=== PATIENT | female | born 1955 | race Caucasian/White ===

== ENCOUNTER → 2017-04-02 | Outpatient (CLI) | payer OTHER ==
[~2017-04-02] MED LIST: MULTIVITAMIN1 CTB PO; NORVASC 5MG5 MG/TAB PO; OMEGA 31000 MG PO; PROBIOTIC-MAJOR PO; VITAMINC1000TA
== END ==
LOC: MC.RAD 10:14
DX: Z12.31 Encounter for screening mammogram for malignant neoplasm of breast (principal)

== ENCOUNTER → 2017-05-23 | Outpatient (CLI) | payer OTHER ==
[2017-05-23 11:28] LABS: HIV 1/2 Antibodies Non-Reactive; HIV-1p24 Antigen Non-Reactive
== END ==
LOC: COL.RAD 09:43
PROVIDERS: Orthopaedic Surgery
DX: Z01.812 Encounter for preprocedural laboratory examination (principal); M17.11 Unilateral primary osteoarthritis, right knee

== ENCOUNTER 2018-02-14 09:08 | Emergency (ER) | payer OTHER ==
[~2018-02-14] VITALS: Ht 172.7 cm; Wt 109.1 kg
[~2018-02-14 09:08] MED LIST changes: +MULTIPLE VITAMI1 CAP PO; -MULTIVITAMIN1 CTB PO
[2018-02-14] MEDS ORDERED: PRILOSEC 20MG20 MG PO (09:39)
[2018-02-14] MEDS ORDERED: CELEXA10 MG PO (09:40)
[2018-02-14] MEDS ORDERED: L-LYSINE500 M1 PO (09:40)
[2018-02-14] MEDS ORDERED: FOLIC ACID 40400 MCG PO (09:40)
[2018-02-14] MEDS ORDERED: ALEVE LIQCAPS PO (09:41)
[2018-02-14] MEDS ORDERED: LEVOXYL0.075 MG PO (09:41)
[2018-02-14] MEDS ORDERED: MAGNESIUM250 M1 PO (09:42)
[2018-02-14 09:46] LABS: BASO % 0.4 % (0.0-2.0); EOS # 0.3 (0.0-0.7); EOS % 4.9 % (0-4.0); GRAN # 2.9 (1.4-6.5); GRAN % 56.1 % (42.2-75.2); HEMATOCRIT 40.4 % (37.0-47.0); HEMOGLOBIN 13.3 g/dl (12.5-16.0); LYMPH # 1.5 (1.2-3.4); MEAN CELL VOLUME 89 fl (80.0-100.0); MEAN CORPUSCULAR HEMOGLOBIN 29 pg (27.0-31.0); MEAN CORPUSCULAR HGB CONC 33 g/dl (33.0-37.0); MEAN PLATELET VOLUME 10.1 fl (7.4-10.4); MONO # 0.5 (0.1-0.6); MONO % 9.4 % (1.7-9.3); PLATELET COUNT 206 K/mm3 (130-400); RED BLOOD COUNT 4.54 M/mm3 (4.10-5.30); REDCELL DISTRIBUTION WIDTH-CV 13.3 % (11.5-14.5)
[2018-02-14 09:58] LABS: ALANINE AMINOTRANSFERASE 27 U/L (9-52); ALBUMIN 3.8 gm/dL (3.5-5.0); ALKALINE PHOSPHATASE 71 U/L (50-136); ANION GAP 10 mmol/L (7-16); AST,SGOT 24 U/L (15-37); BILIRUBIN,TOTAL 0.6 mg/dL (0.0-1.0); BLOOD UREA NITROGEN 19 mg/dL (7-17); CALCIUM 8.8 mg/dL (8.4-10.2); CARBON DIOXIDE 27 mmol/L (22-30); CHLORIDE 104 mmol/L (98-107); GLUCOSE 78 mg/dL (74-106); LIPASE 121 U/L (23-300); SODIUM 141 mmol/L (137-145); TOTAL PROTEIN 6.5 gm/dL (6.4-8.2)
[2018-02-14 10:12] LABS: TROPONIN-I < 0.012 ng/mL (0.000-0.034)
[2018-02-14] MEDS ORDERED: NITROSTAT0.3 MG SL (11:33)
[2018-02-14 11:43] VITALS: BP 184/76; PULSE 53; TEMP 97.8
[2018-02-15] MEDS ORDERED: MELATONIN3 M1 PO (16:13)
[2018-02-15] MEDS ORDERED: NITROSTAT0.3 MG SL (16:18)
[2018-02-18] MEDS ORDERED: ASPIRIN 32325 MG/TA1 PO (08:19)
== END 2018-02-14 11:44 | disposition home or self-care (01) ==
LOC: COL.ER 09:08
PROVIDERS: Emergency Medicine
DX: R07.89 Other chest pain (principal); I10 Essential (primary) hypertension; Z90.89 Acquired absence of other organs; Z90.710 Acquired absence of both cervix and uterus
CPT/HCPCS: J7030

== ENCOUNTER → 2018-02-18 | Outpatient (CLI) | payer OTHER ==
[~2018-02-18] VITALS: Ht 172.7 cm; Wt 110.8 kg
[~2018-02-18] MED LIST changes: +ALEVE LIQCAPS PO; +ASPIRIN 32325 MG/TA1 PO; +CELEXA10 MG PO; +FOLIC ACID 40400 MCG PO; +L-LYSINE500 M1 PO; +LEVOXYL0.075 MG PO; +MAGNESIUM250 M1 PO; +MELATONIN3 M1 PO; +NITROSTAT0.3 MG SL; +PRILOSEC 20MG20 MG PO
[2018-02-18 08:21] VITALS: BP 160/70; PULSE 62
[2018-02-18 09:46] VITALS: BP 168/57; PULSE 88
[2018-02-18 09:48] VITALS: BP 161/60; PULSE 78
== END ==
LOC: COL.CARD 06:45 → COL.RAD 06:45
DX: R07.9 Chest pain, unspecified (principal)
CPT/HCPCS: A9502; J2785

== ENCOUNTER 2018-12-09 15:24 | Emergency (ER) | payer MEDICARE, OTHER ==
[~2018-12-09] VITALS: Ht 172.7 cm; Wt 111.4 kg
[2018-12-09 15:33] VITALS: TEMP 97.9
[2018-12-09 16:01] LABS: BASO % 0.5 % (0.0-2.0); EOS # 0.1 (0.0-0.7); EOS % 1.7 % (0-4.0); GRAN # 3.4 (1.4-6.5); GRAN % 58.8 % (42.2-75.2); HEMATOCRIT 38.2 % (37.0-47.0); HEMOGLOBIN 12.4 g/dl (12.5-16.0); LYMPH # 1.6 (1.2-3.4); LYMPH % 27.8 % (20.0-51.0); MEAN CELL VOLUME 91 fl (80.0-100.0); MEAN CORPUSCULAR HEMOGLOBIN 30 pg (27.0-31.0); MEAN CORPUSCULAR HGB CONC 33 g/dl (33.0-37.0); MEAN PLATELET VOLUME 9.6 fl (7.4-10.4); MONO # 0.6 (0.1-0.6); PLATELET COUNT 318 K/mm3 (130-400); RED BLOOD COUNT 4.19 M/mm3 (4.10-5.30); REDCELL DISTRIBUTION WIDTH-CV 13.8 % (11.5-14.5)
[2018-12-09 16:04] LABS: INR 1.1 (0.8-3.0)
[2018-12-09 16:07] LABS: PARTIAL THROMBOPLASTIN TIME 29.3 SECONDS (26.0-37.0)
[2018-12-09 16:09] LABS: ALANINE AMINOTRANSFERASE 11 U/L (9-52); ALBUMIN 3.6 gm/dL (3.5-5.0); ALKALINE PHOSPHATASE 81 U/L (50-136); ANION GAP 8 mmol/L (7-16); AST,SGOT 16 U/L (15-37); BILIRUBIN,TOTAL 0.3 mg/dL (0.0-1.0); BLOOD UREA NITROGEN 20 mg/dL (7-17); CARBON DIOXIDE 25 mmol/L (22-30); CHLORIDE 107 mmol/L (98-107); CREATININE, serum 0.95 (0.52-1.25); GLUCOSE 111 mg/dL (74-106); POTASSIUM 3.4 mmol/L (3.4-5.0); SODIUM 141 mmol/L (137-145); TOTAL PROTEIN 6.6 gm/dL (6.4-8.2)
[2018-12-09 16:21] LABS: TROPONIN-I < 0.012 ng/mL (0.000-0.035)
[2018-12-09] MEDS ORDERED: PRILOSEC 20MG20 MG PO (18:27)
[2018-12-09 18:40] VITALS: BP 166/74; PULSE 76
== END 2018-12-09 18:40 | disposition home or self-care (01) ==
LOC: COL.ER 15:24
PROVIDERS: Family Medicine
DX: R07.89 Other chest pain (principal); I10 Essential (primary) hypertension; F41.9 Anxiety disorder, unspecified; Z98.890 Other specified postprocedural states; Z79.82 Long term (current) use of aspirin
CPT/HCPCS: Q9967

== ENCOUNTER → 2019-01-03 | Outpatient (CLI) | payer MEDICARE, OTHER ==
[2019-01-03 11:17] LABS: HEMATOCRIT 40.6 % (37.0-47.0); HEMOGLOBIN 13.1 g/dl (12.5-16.0); MEAN CELL VOLUME 93 fl (80.0-100.0); MEAN CORPUSCULAR HEMOGLOBIN 30 pg (27.0-31.0); MEAN CORPUSCULAR HGB CONC 32 g/dl (33.0-37.0); MEAN PLATELET VOLUME 10.2 fl (7.4-10.4); PLATELET COUNT 229 K/mm3 (130-400); RED BLOOD COUNT 4.39 M/mm3 (4.10-5.30)
[2019-01-03 11:55] LABS: ERYTHROCYTE SEDIMENTATION RATE 6 mm/hr (0-30)
== END ==
LOC: COL.LAB 09:53
PROVIDERS: Nurse Practitioner Family
DX: Z96.652 Presence of left artificial knee joint (principal)

== ENCOUNTER → 2019-01-03 | Outpatient (CLI) | payer MEDICARE, OTHER | LOC: COL.VAS 13:33 | DX: M25.462 Effusion, left knee (principal); R79.1 Abnormal coagulation profile; M79.89 Other specified soft tissue disorders ==

== ENCOUNTER 2020-07-12 19:59 | Inpatient (IN) | payer MEDICARE, OTHER ==
[~2020-07-12] VITALS: Ht 172.7 cm; Wt 112.7 kg
[~2020-07-12 19:59] MED LIST changes: +CODITUSSIN AC473 ML PO; +DECADRON6 MG PO; +LYSINE1000 MG PO; +ROBITUSSIN100 MG/5 M PO
[2020-07-12 20:36] LABS: BASO % 0.3 % (0.0-2.0); EOS # 0.1 (0.0-0.7); EOS % 1.2 % (0-4.0); GRAN % 78.1 % (42.2-75.2); HEMATOCRIT 40.4 % (37.0-47.0); HEMOGLOBIN 13.2 g/dl (12.5-16.0); LYMPH # 1.5 (1.2-3.4); LYMPH % 14.2 % (20.0-51.0); MEAN CELL VOLUME 89 fl (80.0-100.0); MEAN CORPUSCULAR HEMOGLOBIN 29 pg (27.0-31.0); MEAN CORPUSCULAR HGB CONC 33 g/dl (33.0-37.0); MONO # 0.6 (0.1-0.6); MONO % 5.9 % (1.7-9.3); PLATELET COUNT 199 K/mm3 (130-400); RED BLOOD COUNT 4.55 M/mm3 (4.10-5.30); REDCELL DISTRIBUTION WIDTH-CV 13.5 % (11.5-14.5)
[2020-07-12 20:44] LABS: INR 1.1 (0.8-3.0); PROTHROMBIN TIME 12.1 SECONDS (9.7-12.8)
[2020-07-12 20:51] LABS: ALBUMIN 3.5 gm/dL (3.5-5.0); BILIRUBIN,TOTAL 0.2 mg/dL (0.0-1.0); CALCIUM 8.9 mg/dL (8.4-10.2); CREATININE, serum 1.38 (0.52-1.25); POTASSIUM 3.7 mmol/L (3.4-5.0); TOTAL PROTEIN 6.1 gm/dL (6.4-8.2)
[2020-07-12] MEDS ORDERED: COZAAR100 MG PO (23:43)
[2020-07-12] MEDS ORDERED: HCTZ 25MG TAB25 MG PO (23:54)
[2020-07-13] VITALS (8 sets, daily range): BP systolic 134–167; BP diastolic 50–68; PULSE 64–90; TEMP 97.7–99.4
--- NOTE | 2020-07-13 03:05 | NUR ---
Patient arrived to surgical floor at 0200. Assessment complete. Lungs clear. Heart sounds normal. Bowels active x4. Pulses present throughout. Left lower extremity CMS intact. Denies pain. Pulses present. Cool to touch however ED nurse reported cool to touch entire night since arrival. Patient is alert and orientated. Perez placed per orders. Orientated to surgical floor. All questions answered. Denies other needs at this time. Will monitor.
[2020-07-13 03:12] LABS: ARTERIAL BLD GAS TCO2 CT 22.8; ARTERIAL BLOOD GAS BASE EXCESS -2.8 (-2-2); ARTERIAL BLOOD GAS HCO3 21.7 meq/L (22-26); ARTERIAL BLOOD GAS PCO2 36.9 mmHg (35-45); ARTERIAL BLOOD GAS PO2 144.2 mmHg (80-100); ARTERIAL BLOOD GAS pH 7.39 (7.35-7.45)
[2020-07-13 03:15] LABS: PH 6 (5-8); SQUAMOUS EPITHELIAL None Seen /hpf; URINE APPEARANCE Clear; URINE BACTERIA None Seen /hpf; URINE BILIRUBIN Negative (NEGATIVE); URINE BLOOD 1+ (NEGATIVE); URINE COLOR Yellow; URINE GLUCOSE Negative (NEGATIVE); URINE KETONE Negative (NEGATIVE); URINE LEUKOCYTE ESTERASE Negative (NEGATIVE); URINE NITRATE Negative (NEGATIVE); URINE PROTEIN(semi-quant) Negative (NEGATIVE); URINE UROBILINOGEN Negative (NEGATIVE)
[2020-07-13 03:20] LABS: COLLECTION METHOD CLEAN CATCH
[2020-07-13 03:27] LABS: PRE ALBUMIN 23.2 mg/dL (17.6-36.0)
--- NOTE | 2020-07-13 04:28 | NUR ---
Resting in bed. Reports 3/10 dull pain. Denies needs for medication at this time. CMS intact. Pulses strong in left lower extremity. Will continue to monitor.
--- NOTE | 2020-07-13 04:42 | NUR ---
Patient reported shooting pains in left knee after awakening. Given PRN dilaudid at patient request. Will monitor.
--- NOTE | 2020-07-13 06:22 | NUR ---
Patient required dilaudid for pain control during night. Otherwise uneventful night. Resting in bed this AM. Splint on leg. Ice on. Call light in reach.
--- NOTE | 2020-07-13 07:04 | NUR ---
Report given to DENIS Terry
--- NOTE | 2020-07-13 08:00 | NUR ---
Patient in bed resting. Alert and oriented x3. Pedal pulses intact. LLE with brace in place, sensation intact. Fluids infusing per orders. Denies further needs at this time.
[2020-07-13 08:27] LABS: BASO % 0.2 % (0.0-2.0); EOS % 0.1 % (0-4.0); GRAN # 6.8 (1.4-6.5); GRAN % 79.2 % (42.2-75.2); HEMATOCRIT 37.2 % (37.0-47.0); MEAN CELL VOLUME 91 fl (80.0-100.0); MEAN CORPUSCULAR HEMOGLOBIN 29 pg (27.0-31.0); MEAN CORPUSCULAR HGB CONC 32 g/dl (33.0-37.0); MEAN PLATELET VOLUME 10.8 fl (7.4-10.4); MONO # 0.7 (0.1-0.6); MONO % 8.3 % (1.7-9.3); PLATELET COUNT 201 K/mm3 (130-400); RED BLOOD COUNT 4.11 M/mm3 (4.10-5.30); REDCELL DISTRIBUTION WIDTH-CV 13.7 % (11.5-14.5)
[2020-07-13 08:28] LABS: CALCIUM 8.6 mg/dL (8.4-10.2); CREATININE, serum 1.2 (0.52-1.25); POTASSIUM 4.1 mmol/L (3.4-5.0)
--- NOTE | 2020-07-13 10:31 | NUR ---
Patient down by bed to CT
--- NOTE | 2020-07-13 13:48 | NUR ---
RACHELLE met with the patient to discuss discharge plan. The patient lives outside of [place] with her , Jefferson (ph#[phone]), daughter (Emilie, ph#[phone]), son-in-law, and granddaughter. She reports independence with ADLs and has a cane, walker, and grabbars in the home. The patient's PCP is Dr. Ashley Adler and she receives her medications from [facility]. The patient does not have a DPOA-HC, but she was interested in obtaining a form. RACHELLE provided. The patient plans to return home with her family upon discharge. The patient has a distal femur fracture and she is planned to have surgery tomorrow, 07/14. RACHELLE then contacted the patient's , Jefferson, to review d/c plan. Jefferson reports no concerns with the patient returning home with them upon discharge. He states that the patient will probably need a wheelchair and portable commode. RACHELLE informed Jefferson on where he could obtain the commode. SW to continue to follow for therapies recommendations on equipment and any services.
--- NOTE | 2020-07-13 20:15 | NUR ---
Resting in bed. Assessment complete. Lungs clear. Heart sounds normal. Bowels active x4. Pulses present throughout. Bilateral lower extremity edema +1. Patient immobilizer in place. CMS intact in left lower extremity. Reports 2/10 pain, also having spasms. Given PRN robaxin. Perez to dependent drainage without complications. Denies needs at this time. Call light in reach.
--- NOTE | 2020-07-13 23:47 | NUR ---
CMS intact in left lower ext. Patient denies pain. Denies needs. Call light in reach.
[2020-07-14] VITALS (14 sets, daily range): BP systolic 139–198; BP diastolic 55–75; PULSE 75–106; TEMP 98–998
--- NOTE | 2020-07-14 01:28 | NUR ---
Reports 01/15 pain. Request robaxin. Not due at this time. Given PRN norco. Will monitor.
--- NOTE | 2020-07-14 03:35 | NUR ---
Given PRN robaxin for pain. Denies other needs. Call light in reach.
--- NOTE | 2020-07-14 06:32 | NUR ---
Patient required PRN norco and robaxin for pain control during night. Otherwise uneventful night. Resting in bed this AM. Call light in reach.
--- NOTE | 2020-07-14 07:07 | NUR ---
Report given to DENIS Stokes
[2020-07-14 07:48] LABS: BASO % 0.3 % (0.0-2.0); EOS # 0.1 (0.0-0.7); EOS % 1.9 % (0-4.0); GRAN # 4.5 (1.4-6.5); GRAN % 65.2 % (42.2-75.2); HEMOGLOBIN 11.5 g/dl (12.5-16.0); LYMPH # 1.7 (1.2-3.4); LYMPH % 23.7 % (20.0-51.0); MEAN CELL VOLUME 91 fl (80.0-100.0); MEAN CORPUSCULAR HEMOGLOBIN 29 pg (27.0-31.0); MEAN CORPUSCULAR HGB CONC 32 g/dl (33.0-37.0); MEAN PLATELET VOLUME 10.1 fl (7.4-10.4); MONO # 0.6 (0.1-0.6); MONO % 8.8 % (1.7-9.3); PLATELET COUNT 160 K/mm3 (130-400); RED BLOOD COUNT 3.94 M/mm3 (4.10-5.30); REDCELL DISTRIBUTION WIDTH-CV 13.7 % (11.5-14.5)
[2020-07-14 08:07] LABS: CALCIUM 8.1 mg/dL (8.4-10.2); CREATININE, serum 0.91 (0.52-1.25); POTASSIUM 3.9 mmol/L (3.4-5.0)
[2020-07-14 08:30] LABS: HEMATOCRIT 35.9 % (37.0-47.0)
--- NOTE | 2020-07-14 09:11 | NUR ---
PT RESTING QUIETLY IN BED WITH MANAGED PAIN. PT TO HAVE SURGERY THIS PM WITH DR. CANTRELL FOR REPAIR OF PERPROSTHETIC FX OF FEMUR. SPOKE WITH PT'S FAMILY AND PROVIDED UPDATES ON PT STATUS AND SURGERY TIMES.
--- NOTE | 2020-07-14 17:36 | NUR ---
PT TO ROOM 325 PER BED WITH REPORT FROM MAGGIE BARRIOS PACU @9976. PT IS A/O X3 LUNGS CLEAR. DRESSING TO LEFT LEG CDI WITH OCCLUSIVE BRAXTON WRAP OVER SURGICAL SITE. IV TO PUMP PER ORDERS.
--- NOTE | 2020-07-14 19:29 | NUR ---
Resting in bed. Assessment complete. Lungs clear. Heart sounds normal. bowels active x4. Pulses present throughout. Bilateral lower ext edema +1. INT left hand flushed without complications. Reporting pain and BP elevated. Given PRN dilaudid at this time. Will monitor BP and provide anti hypertensives if BP not decreased by pain relief. Patient has bulky dressing with knee immoblizer to left knee in place. CMS intact. Denies other needs at this time. Call light in reach.
--- NOTE | 2020-07-14 19:53 | NUR ---
Patient BP remains elevated. Given PRN hydralazine. Will closely monitor
--- NOTE | 2020-07-14 22:21 | NUR ---
Reporting 6/10 pain in left knee. Given PRN norco at this time.
--- NOTE | 2020-07-14 23:23 | NUR ---
Patient reports continued pain. Given PRN oxycodone at this time.
--- NOTE | 2020-07-15 03:19 | NUR ---
Reported 5/10 left leg pain. Given PRN oxycodone at this time. Call light in reach.
[2020-07-15 04:47] VITALS: BP 154/58; PULSE 114; TEMP 99.4
--- NOTE | 2020-07-15 05:17 | NUR ---
Patient required PRN norco and oxycodone for pain control during night. CMS intact in left leg. Otherwise uneventful night. Resting in bed this AM. Call light in reach.
--- NOTE | 2020-07-15 06:45 | NUR ---
Report given to DENIS Stokes
[2020-07-15 07:31] VITALS: BP 154/63; PULSE 103; TEMP 100.6
[2020-07-15 07:54] LABS: HEMOGLOBIN 11.2 g/dl (12.5-16.0)
[2020-07-15 07:55] LABS: HEMATOCRIT 34.9 % (37.0-47.0)
[2020-07-15 08:15] LABS: CALCIUM 8.1 mg/dL (8.4-10.2); CREATININE, serum 0.96 (0.52-1.25); POTASSIUM 4.2 mmol/L (3.4-5.0)
[2020-07-15 08:43] LABS: BASO % 0.2 % (0.0-2.0); EOS % 0.3 % (0-4.0); GRAN % 78.6 % (42.2-75.2); LYMPH # 1.1 (1.2-3.4); LYMPH % 10.8 % (20.0-51.0); MEAN CELL VOLUME 92 fl (80.0-100.0); MEAN CORPUSCULAR HEMOGLOBIN 29 pg (27.0-31.0); MEAN CORPUSCULAR HGB CONC 32 g/dl (33.0-37.0); MEAN PLATELET VOLUME 10.5 fl (7.4-10.4); MONO % 9.8 % (1.7-9.3); PLATELET COUNT 164 K/mm3 (130-400); RED BLOOD COUNT 3.89 M/mm3 (4.10-5.30); REDCELL DISTRIBUTION WIDTH-CV 13.7 % (11.5-14.5)
[2020-07-15 09:00] LABS: MUCOUS Present /lpf; PH 5 (5-8); SQUAMOUS EPITHELIAL 0-2 /hpf; URINE APPEARANCE Hazy; URINE BACTERIA Rare /hpf; URINE BILIRUBIN Negative (NEGATIVE); URINE BLOOD 3+ (NEGATIVE); URINE COLOR Yellow; URINE GLUCOSE Negative (NEGATIVE); URINE KETONE Trace (NEGATIVE); URINE LEUKOCYTE ESTERASE Negative (NEGATIVE); URINE NITRATE Negative (NEGATIVE); URINE PROTEIN(semi-quant) 1+ (NEGATIVE); URINE RBC 20-50 /hpf; URINE UROBILINOGEN Negative (NEGATIVE)
[2020-07-15 09:02] LABS: COLLECTION METHOD CATHETER
--- NOTE | 2020-07-15 09:08 | NUR ---
PT WORKING WITH THERAPY THIS AM. ATE 50 % OF BREAKFAST. AM MEDS GIVEN. VSS TEMP SLIGHTLY ELEVATED. ENCOURAGED IS. PT STARTING TO WORK WITH THERAPY THIS AM. PAIN COCNTROLLED WITH PO MEDS. OCCLUSIVE DRESSING WITH KNEE IMMOBILIZER INPLACCE.
--- NOTE | 2020-07-15 10:44 | NUR ---
SHETH CATHETER DISCONTINUED PER ORDERS. TIP INTACT PT TOLERATED WELL. 500 YELLOW CONCENTRATED URINE IN BAG.
--- NOTE | 2020-07-15 11:33 | NUR ---
First visit from the seafood manager. No needs right now.
[2020-07-15 11:54] VITALS: BP 119/54; PULSE 94; TEMP 99.3
--- NOTE | 2020-07-15 12:57 | NUR ---
PT UP TO BEDSIDE COMODE WITH HEAVY ASSIST X2.
--- NOTE | 2020-07-15 14:28 | NUR ---
PT is recommending post-acute rehab. SW met with the patient to review d/c plan to discuss PT's recommendation. The patient was interested in post-acute rehab and requested that SW contact her on the options and his preference. RACHELLE then contacted the patient's , Jefferson. Their daughter, Emilie, was also on the call. SW informed them of the options available. Jefefrson and Emilie were interested in [facility] and [facility]. SW updated the patient and she was agreeable to the options. RACHELLE contacted and faxed a referral to [facility]. RACHELLE consulted IPR Director, Rosmery. Awaiting screens.
[2020-07-15 15:16] LABS: HEMOGLOBIN 11.1 g/dl (12.5-16.0)
[2020-07-15 15:17] LABS: HEMATOCRIT 34.1 % (37.0-47.0)
[2020-07-15 16:20] VITALS: BP 129/56; PULSE 82; TEMP 98.8
[2020-07-15 20:00] VITALS: BP 132/59; PULSE 89; TEMP 99
--- NOTE | 2020-07-15 20:30 | NUR ---
DECREASED ROM/STRENGTH TO LLE D/T SURGERY. DENIES NUMBNESS/TINGLING TO EXTREMITIES. DENIES CHEST PAIN/SHORTNESS OF AIR AT THIS TIME. DENIES ANY DISCOMFORT OR NEEDS AT THIS TIME.
--- NOTE | 2020-07-15 21:59 | NUR ---
RECEIVED CHANGE OF SHIFT REPORT FROM DAY SHIFT NURSE.
[2020-07-16] VITALS (7 sets, daily range): BP systolic 120–145; BP diastolic 52–68; PULSE 73–88; TEMP 97.6–99.1
[2020-07-16 07:24] LABS: BASO % 0.2 % (0.0-2.0); EOS # 0.2 (0.0-0.7); EOS % 1.8 % (0-4.0); GRAN # 7.3 (1.4-6.5); GRAN % 76.1 % (42.2-75.2); LYMPH # 1.1 (1.2-3.4); LYMPH % 11.5 % (20.0-51.0); MEAN CELL VOLUME 90 fl (80.0-100.0); MEAN CORPUSCULAR HGB CONC 33 g/dl (33.0-37.0); MEAN PLATELET VOLUME 10.7 fl (7.4-10.4); MONO % 10.1 % (1.7-9.3); PLATELET COUNT 159 K/mm3 (130-400); REDCELL DISTRIBUTION WIDTH-CV 13.7 % (11.5-14.5)
[2020-07-16 07:35] LABS: HEMATOCRIT 30.5 % (37.0-47.0); HEMOGLOBIN 9.9 g/dl (12.5-16.0); MEAN CORPUSCULAR HEMOGLOBIN 29 pg (27.0-31.0)
[2020-07-16 07:46] LABS: ALBUMIN 2.7 gm/dL (3.5-5.0); BILIRUBIN,TOTAL 0.7 mg/dL (0.0-1.0); CALCIUM 8.4 mg/dL (8.4-10.2); CREATININE, serum 1.08 (0.52-1.25); POTASSIUM 3.8 mmol/L (3.4-5.0); TOTAL PROTEIN 5.3 gm/dL (6.4-8.2)
--- NOTE | 2020-07-16 08:00 | NUR ---
PATIENT IS A&O. VSS. DENIES PAIN AT REST BUT REPORTS PAIN INCREASES WITH ACTIVITY. PATIENT RECENTLY UP TO BEDSIDE COMMODE AND IS REQUESTING PAIN MEDS. GAVE PRN ROXICODONE WITH AM MEDS. NO C/O N/V. PATIENT PASSING GAS BUT NO BM YET. PATIENT IS NWB TO LLE. LLE ACEWRAP DRESSING IS CD&I WITH TECHNOL BRACE INPLACE. PATIENT IS 1 ASSIST WITH WALKER TO COMMODE. PT CONSULTED. REACTOR KETTLE OPERATOR WORKING ON DISCHARGE PLANNING. HEAD TO TOE ASSESSMENT WNL. BREAKFAST TRAY AT BEDSIDE. CALL LIGHT IN REACH. NO OTHER NEEDS.
--- NOTE | 2020-07-16 09:19 | NUR ---
Rosmery, IPR Director, reports that they are not be able to accept the patient; due to no beds and physician available.
--- NOTE | 2020-07-16 11:19 | NUR ---
Fernando, at [facility], reports that they can tentatively accept the patient. They will require a break in stay letter from Ortho. RACHELLE collaborated with the patient's RN. The patient's RN contacted the PA and he will run over to the hospital to fill out and sign the form when he gets out of surgery. Rosy, at [facility], reports that they would not be able to take a patient until next Sunday/Sunday. The patient's COVID results are still pending.
--- NOTE | 2020-07-16 14:42 | NUR ---
RACHELLE gave a referral to [facility]. RACHELLE then contacted the patient's , Jefferson, to update. The patient's daughter, Emilie, was also on the call. SW updated them on the referrals and discussed sending referrals to other facilities. RACHELLE also informed them about the active COVID at [facility]. Jefferson and Emilie report that the patient already had COVID and they do not want her to get again. They do not want the patient going to [facility]. Jefferson and Emilie requested that SW talk to the patient first and see what she wants to do. RACHELLE then met with the patient and updated her on the above information. The patient reports that she does not want to go [facility] now. The patient states that she would prefer to return back home with family assistance and home health. She would also need a wheelchair with elevating leg rests. SW provided the patient with Medicare[employer]'s list of home health agencies that serve [place]. The patient chose [facility]. RACHELLE contacted and faxed a referral to Violetta at [facility]. Awaiting screen. RACHELLE contacted and faxed the wheelchair order to Lili at [facility]. Lili reports that they will try and deliver the wheelchair up to the patient's room this afternoon. RACHELLE updated the clinical team. The patient is to tentatively discharge tomorrow, 07/17. RACHELLE contacted and updated the patient's , Jefferson. Jefferson is agreeable to the plan. RACHELLE attempted to contact Michelle at [facility] to update. RACHELLE left her a voicemail.
--- NOTE | 2020-07-16 15:20 | NUR ---
Lili, at [facility], reports that they do not the wheelchair size that the patient needs. RACHELLE contacted and faxed the wheelchair order to Ольга at [facility]. Ольга reports that they will contact the patient about how she would like it delivered and inform her if insurance will pay for it. RACHELLE met with the patient to update. RACHELLE also read the IM form outloud to her. The patient verbalized understanding and gave SW approval to sign the form on her behalf. RACHELLE provided her with a copy.
--- NOTE | 2020-07-16 15:35 | NUR ---
DISCHARGE PLAN IS NOW HOME WITH HH TOMORROW. FAMILY IS AWARE.
--- NOTE | 2020-07-16 16:10 | NUR ---
Ольга, at [facility], reports that the patient does not have a chronic diagnosis, so Medicare will not cover the wheelchair. Ольга states that a wheelchair will cost $120 a month to rent. RACHELLE met with the patient to update. The patient states that she is agreeable to and okay with private paying the $120 a month. RACHELLE updated Ольга at [facility]. Ольга reports that they will deliver the wheelchair up to the patient's room this afternoon.
--- NOTE | 2020-07-16 19:22 | NUR ---
RECEIVED CHANGE OF SHIFT REPORT FROM DAY SHIFT NURSEGRANT.
[2020-07-17 04:00] VITALS: BP 121/54; PULSE 79; TEMP 98.6
[2020-07-17 07:08] LABS: MEAN CELL VOLUME 92 fl (80.0-100.0); MEAN CORPUSCULAR HGB CONC 32 g/dl (33.0-37.0); MEAN PLATELET VOLUME 10.6 fl (7.4-10.4); PLATELET COUNT 176 K/mm3 (130-400); RED BLOOD COUNT 3.06 M/mm3 (4.10-5.30)
[2020-07-17 07:10] LABS: HEMATOCRIT 28.1 % (37.0-47.0); HEMOGLOBIN 9.1 g/dl (12.5-16.0); MEAN CORPUSCULAR HEMOGLOBIN 30 pg (27.0-31.0)
--- NOTE | 2020-07-17 07:16 | NUR ---
CHANGE OF SHIFT REPORT GIVEN TO DAY SHIFT NURSEWILLIAM.
[2020-07-17 07:27] LABS: CALCIUM 8.3 mg/dL (8.4-10.2); CREATININE, serum 1.04 (0.52-1.25); POTASSIUM 3.7 mmol/L (3.4-5.0)
[2020-07-17 07:44] VITALS: BP 137/50; PULSE 77; TEMP 98.4
[2020-07-17] MEDS ORDERED: ROBAXIN 50500 MG/TAB PO (10:16)
[2020-07-17] MEDS ORDERED: ASPI325T6 PO (10:17)
[2020-07-17] MEDS ORDERED: NORCO 325 MG-51 TAB PO (10:18)
--- NOTE | 2020-07-17 10:30 | NUR ---
Patient is discharging home today with home health. She has all the equipment she needs at home. Denies nausea, minimal complaints of pain. Encouraged her to do her ankle pumps. Brace to LLE. Dressing clean and dry. Patient is sitting up in the chair at this time. No other changes at this time. Call light within reach.
[2020-07-17 11:39] VITALS: BP 138/52; PULSE 79; TEMP 98.5
--- NOTE | 2020-07-17 12:30 | NUR ---
Patient is discharging home. Discharge instructions discussed with patient. NO questions verbalized. INT discontinued. Explained she has scripts to [facility]er at [facility]. She is aware she has to call Sunday for her follow up appointments. Discussed how to care for her dressings. Copies of discharge instructions sent with patient. All belongings packed up and sent with patient. Patient walked out via wheel chair.
--- NOTE | 2020-07-19 13:46 | NUR ---
The patient discharge back home with her on Sunday, 07/17, with home health services for senior care/PT/OT. SW notified and faxed the d/c orders to [facility] today.
== END 2020-07-17 12:30 | disposition home health service (06) | DRG 481 ==
LOC: COL.ER 19:59 → SURG 22:04
PROVIDERS: Nurse Practitioner Family; Nurse Practitioner Primary Care; Orthopaedic Surgery Sports Medicine; Physician Assistant; ADMIT Hospitalist
PROC: 0QSC04Z Reposition Left Lower Femur with Internal Fixation Device, Open Approach (ICD-10-PCS; principal; 2020-07-14 13:30)
DX: S72.402A Unspecified fracture of lower end of left femur, initial encounter for closed fracture (principal); N17.9 Acute kidney failure, unspecified; R09.02 Hypoxemia; E03.9 Hypothyroidism, unspecified; I10 Essential (primary) hypertension; F32.9 Major depressive disorder, single episode, unspecified; Z90.710 Acquired absence of both cervix and uterus; Z90.89 Acquired absence of other organs; Z96.653 Presence of artificial knee joint, bilateral; Z87.891 Personal history of nicotine dependence; W01.0XXA Fall on same level from slipping, tripping and stumbling without subsequent striking against object, initial encounter; Y93.01 Activity, walking, marching and hiking; J45.909 Unspecified asthma, uncomplicated; R50.9 Fever, unspecified; Z20.828 Contact with and (suspected) exposure to other viral communicable diseases
CPT/HCPCS: 99223-AI; 99231-AI; 99232-AI; A9284; C1713; C1776; J0360; J0690; J1170; J2250; J2405; J2704; J3010; J7030; J7042; L1830

== ENCOUNTER → 2021-09-08 | Outpatient (CLI) | payer MEDICARE, OTHER ==
[~2021-09-08] MED LIST changes: +ASPI325T6 PO; +COZAAR100 MG PO; +HCTZ 25MG TAB25 MG PO; +NORCO 325 MG-51 TAB PO; +ROBAXIN 50500 MG/TAB PO
== END ==
LOC: MC.RAD 09:12
DX: N60.01 Solitary cyst of right breast (principal)